=== PATIENT | female | born 1955 | race Caucasian/White ===

== ENCOUNTER 2024-01-17 09:10 | Day surgery (SDC) | payer OTHER, BC ==
[2024-01-10 17:03] VITALS: BMI 26.1
[2024-01-17] MEDS: PHENYLEPHRINE 2.5% OPTHALMIC DROP 2ML BOTTLE ONE (10:45)
[2024-01-17] MEDS: CIPROFLOXACIN 0.3% EYE DROPS 5 ML BOTTLE ONE (10:45)
[2024-01-17] MEDS: CYCLOPENTOLATE 2% OPHTH SOLN 2 ML BOTTLE ONE (10:45)
[2024-01-17] MEDS: TROPICAMIDE 1% OPHTH SOLN 15 ML BOTTLE ONE (10:45)
[2024-01-17] MEDS ORDERED: BSS (NA/CA/MG/K) BALANCED SALT SOLUTION OPHTH SOLN 15 ML BOTTLE ONE (11:09)
[2024-01-17] MEDS ORDERED: TETRACAINE 0.5% OPHTH SOLN 2 ML BOTTLE ONE (11:09)
[2024-01-17] MEDS ORDERED: LIDOCAINE 1% P/F 10 MG/ML VIAL ONE (11:09)
[2024-01-17] MEDS ORDERED: NEO/POLYMYX B SULF/DEXAMETH OPHTHALMIC 5ML BOTTLE ONE (11:10)
[2024-01-17] MEDS ORDERED: CARBACHOL 0.01% INTRA-OCULAR 1.5 ML VIAL ONE (11:10)
[2024-01-17] MEDS ORDERED: MIDAZOLAM HCL 2 MG/2 ML SINGLE DOSE VIAL ONE (12:25)
[2024-01-17 13:28] VITALS: BP 128/76; PULSE 70; RESP 17; TEMP 97
== END 2024-01-17 13:22 | disposition home or self-care (01) ==
LOC: FASU 09:10
PROVIDERS: ATTEND Ophthalmology
PROC: 08RK3JZ Replacement of Left Lens with Synthetic Substitute, Percutaneous Approach (ICD-10-PCS; principal; 2024-01-17 12:34)
DX: H26.8 Other specified cataract (principal)
CPT/HCPCS: 66984; V2632

== ENCOUNTER 2024-01-31 07:43 | Day surgery (SDC) | payer OTHER, BC ==
[2024-01-25 16:59] VITALS: BMI 26.1
[2024-01-31 07:55] VITALS: RESP 18
[2024-01-31] MEDS: TROPICAMIDE 1% OPHTH SOLN 15 ML BOTTLE ONE (07:55)
[2024-01-31] MEDS: CIPROFLOXACIN 0.3% EYE DROPS 5 ML BOTTLE ONE (07:55)
[2024-01-31] MEDS: PHENYLEPHRINE 2.5% OPTHALMIC DROP 2ML BOTTLE ONE (07:55)
[2024-01-31] MEDS: CYCLOPENTOLATE 2% OPHTH SOLN 2 ML BOTTLE ONE (07:55)
[2024-01-31] MEDS ORDERED: TETRACAINE 0.5% OPHTH SOLN 2 ML BOTTLE ONE (08:13)
[2024-01-31] MEDS ORDERED: LIDOCAINE 1% P/F 10 MG/ML VIAL ONE (08:13)
[2024-01-31] MEDS ORDERED: BSS (NA/CA/MG/K) BALANCED SALT SOLUTION OPHTH SOLN 15 ML BOTTLE ONE (08:13)
[2024-01-31] MEDS ORDERED: NEO/POLYMYX B SULF/DEXAMETH OPHTHALMIC 5ML BOTTLE ONE (08:14)
[2024-01-31] MEDS ORDERED: CARBACHOL 0.01% INTRA-OCULAR 1.5 ML VIAL ONE (08:14)
[2024-01-31] MEDS ORDERED: MIDAZOLAM HCL 2 MG/2 ML SINGLE DOSE VIAL ONE (08:16)
[2024-01-31 09:48] VITALS: TEMP 97.7
[2024-01-31 10:01] VITALS: BP 121/71; PULSE 69
== END 2024-01-31 10:00 | disposition home or self-care (01) ==
LOC: FASU 07:43
PROVIDERS: ATTEND Ophthalmology
PROC: 08RJ3JZ Replacement of Right Lens with Synthetic Substitute, Percutaneous Approach (ICD-10-PCS; principal; 2024-01-31 09:09)
DX: H26.8 Other specified cataract (principal)
CPT/HCPCS: 66984; V2632